=== PATIENT | female | born 1975 | race Caucasian/White ===

== ENCOUNTER 2021-04-29 01:35 | Day surgery (SDC) | payer BC, SELFPAY ==
[2021-04-21 12:52] VITALS: BMI 33.0
--- NOTE | 2021-04-21 13:02 | PC.NURSE ---
Report to the Outpatient Waiting Room, entrance under the green pavilion located off [facility], at time 0930 on date 04/29/21. OR Time: 1130. - You and your visitor will be asked a series of questions to screen for COVID 19 for your protection. - A mask is required within the hospital. One visitor will be allowed to accompany the patient into the hospital. Patients visitor will be instructed to remain with patient at all times or leave the building. We will allow the visitor to come back to the postoperative area when patient is ready. Preoperative COVID Testing Requirements: No COVID Test needed if: (proof is required; if not received patient will have Rapid Test prior to entry) - Patient has received COVID Vaccine at least 14 days prior to procedure date or - Patient has positive COVID test result within last 90 days of surgery date. COVID Test needed if above criteria is not met Patients may have clear liquids (water, carbonated beverages, clear teas, apple juice) until 3 hours prior to surgery with a maximum of 20 ounces. - No food from midnight until time of surgery Take the following medications with a SIP of water the morning of surgery: ALPRAZOLAM Medications to discontinue per physician: N/A Date to take last dose: N/A Please no make-up, nail yi, hairspray, perfume, deodorant, or body powder the day of surgery. No jewelry (including any body piercings) or valuables the day of surgery, leave them at home. Please take a shower or bath the night before, or the morning of, surgery with an antibacterial soap. Wear comfortable, loose fitting clothing. - Jewelry must be removed prior to entering the operating room. Rings and piercings that are not removed may be cut off. - The hospital will not accept responsibility for valuables. - Please leave all valuables, including medications, at home the day of surgery. If you are going home after surgery, a licensed parcel post truck driver must drive you home. - NO public transportation without another adult. - We recommend that an adult stay with you for 24 hours following discharge. - We also recommend that you do not drive, make important decision, drink alcoholic beverages, or take any drugs that were not prescribed by your health care provider for at least 24 hours after your discharge time. Follow any additional instructions given to you from your surgeon. Telephone instructions given to XENA CHILEL and asked if any additional questions and then verbalized understanding. Patient advised to call surgeon office or pre surgery nurse liaison [phone] if any additional questions.
--- NOTE | 2021-04-28 16:08 | PM.IMHP ---
H&P: HPI History of Present Illness Date/Time: 04/28/21 16:08 Patient is a 45 year old woman who presented to gynecology office for evaluation of malpositioned Essure tubal occlusion device. Patient had Essure procedure performed in approximately 2009. She was doing well until a few months ago when she developed irregular menses occurring approximately every 2 weeks. Patient also reports worsening pelvic pain and cramping during same timeframe. She was concerned and presented to [facility] for further evaluation. A pelvic ultrasound was performed and reported malpositioned left Essure device within uterine fundus. After discussion, decision made to proceed with hysteroscopic evaluation and hopefully, Essure device removal, as next step in management. In general, patient doing well today without complaints. Chief Complaint: Pelvic pain Malpositioned Essure tubal occlusion device Review of Systems Review of Systems: All systems reviewed & are unremarkable except as noted in HPI and below Constitutional: Constitutional: Reports as per HPI, Reports no additional constitutional complaints, Denies chills, Denies fever(s), Denies headache(s) and Denies night sweats Eyes: Eyes: Reports as per HPI and Reports no additional eye complaints ENT: Reports system reviewed and no additional complaints, except as documented, Reports as per HPI, Reports Normal hearing present and Denies headache(s) Cardiovascular: Cardiovascular: Reports as per HPI, Reports no additional cardiovascular complaints, Denies chest pain and Denies dyspnea Respiratory: Respiratory: Reports as per HPI, Reports no additional respiratory complaints, Denies cough and Denies dyspnea Gastrointestinal: Gastrointestinal: Reports as per HPI, Reports no additional gastrointestinal complaints, Denies abdominal pain, Denies change in bowel habits, Denies change in stool character, Denies nausea and Denies vomiting Genitourinary: Genitourinary: Reports no additional female genitourinary complaints, Reports as per HPI, Denies abnormal vaginal bleeding, Denies genital lesions, Denies hot flashes, Denies dyspareunia, Denies pelvic pain, Denies sexual dysfunction, Denies urinary incontinence, Denies vaginal discharge, Denies vaginal dryness and Denies vaginal odor Musculoskeletal: Musculoskeletal: Reports no additional musculoskeletal complaints and Reports as per HPI Integumentary/Breasts: Skin/Breast: Reports system reviewed and no additional complaints, except as docu, Reports as per HPI, Denies breast pain and Denies nipple discharge Neurologic: Reports system reviewed and no additional complaints, except as documented, Reports as per HPI, Reports Normal hearing present and Denies headache(s) Psychiatric: Psychiatric: Reports no additional psychiatric complaints, Reports as per HPI, Denies anxiety and Denies depression Endocrine: Endocrine: Reports no additional endocrine complaints and Reports as per HPI Hematologic/Lymphatic: Hematologic/Lymphatic: Reports no additional hematologic/lymphatic complaints and Reports as per HPI Allergic/Immunologic: Allergic/Immunologic: Reports no additional allergic/immunologic complaints and Reports as per HPI PMFSH Past Medical History Medical History H/O gastroesophageal reflux (GERD) History of miscarriage x 1 History of sterilization procedure Essure Coils 2010 History of vaginal delivery x 3 Irregular menses Plantar fasciitis Surgical History Surgical History History of colposcopy with cervical biopsy 2006 History of D&C 2008 after miscarriage History of foot surgery History of loop electrical excision procedure (LEEP) 2006 Family History Family History Father Hypertension Mother Diabetes mellitus Hypertension Thyroid disorder Sibling Diabetes mellitus Hyperte
[2021-04-29 09:44] VITALS: BP 122/81; PULSE 72; RESP 18; TEMP 36.4; O2SAT 100
--- NOTE | 2021-04-29 09:57 | P.PNAN_ITS ---
Anes - Initial Pre Proc Eval Procedure: Operation Date: 04/29/21 11:30 Proposed Procedures p Hysteroscopy - Romelia Ríos MD Date/Time: 04/29/21 09:57 Surgeon: Romelia Roís MD Pre Op Diagnosis: pelvic pain Patient Data Age: 45 Gender: F Height: 1.68 m Weight: 93 kg Allergies Allergy/AdvReac Type Severity Reaction Status Date / Time metronidazole [From Flagyl] Allergy Hives Verified 04/21/21 12:51 chlorhexidine AdvReac Rash Verified 04/21/21 12:51 Home Medications Medication Instructions Recorded Confirmed Type alprazolam 0.25 mg tablet 0.25 mg PO DAILY 01/18/21 04/21/21 History pantoprazole 40 mg granules 40 mg PO DAILY 01/18/21 04/21/21 History delayed-release for susp in packet diclofenac sodium 100 mg 100 mg PO DAILY 04/12/21 04/21/21 History tablet,extended release 24 hr Patient hx anesthesia problems: none Family hx anesthesia problems: none Results Review: All pre-operative results and documents have been reviewed as part of the pre-operative evaluation. [facility] Past Medical History Medical History Anxiety H/O gastroesophageal reflux (GERD) MARITZA (obstructive sleep apnea) Plantar fasciitis Surgical History Surgical History History of colposcopy with cervical biopsy 2006 History of D&C 2008 after miscarriage History of foot surgery History of loop electrical excision procedure (LEEP) 2006 Family History Family History Father Hypertension Mother Diabetes mellitus Hypertension Thyroid disorder Sibling Diabetes mellitus Hypertension Social History Social History Smoking packs per day: 1.5 Smoking cigarettes per day: 30.0 Years smoked: 20 Smoking pack-years: 30.00 Smoking status: Former smoker Tobacco type: cigarettes Smoking end date: 03/05/15 Alcohol intake: never Substance use: never Substance use type: does not use Living arrangements: with family Spiritual care concerns: No Anes - Eval Final PreProcedure Day of Procedure 04/29/21 09:57 Patient weight: obese Heart: regular rate and rhythm Lungs: clear to auscultation Airway: Mallampati scale class II Neurological: alert and oriented Last oral intake: >/= 8 hours ASA classification: III Emergent: no Anesthetic plan: proceed Anesthesia type and monitoring: general GIVS and standard monitoring Results Review: All pre-operative results and documents have been reviewed as part of the pre-operative evaluation. Informed Consent: The patient's anesthetic plan and its attendant risks and benefits were discussed with the patient/family/POA. Questions were solicited and answers provided to the satisfaction of the patient/family/POA.
[2021-04-29] MEDS: LACTATED RINGERS 1,000 ML 30 ML IV CONT (10:07)
--- NOTE | 2021-04-29 10:15 | WPDHPUPDATE1 ---
History and Physical Update Update Date/Time: 04/29/21 10:15 History and Physical has been reviewed, including an updated exam of the patient. There are NO changes in the patient's condition. Risks, benefits, and alternatives have been discussed and questions answered. Patient agrees to proceed with procedure.
[2021-04-29 11:06] VITALS: BP 136/72; PULSE 80; RESP 16; O2SAT 98
--- NOTE | 2021-04-29 11:11 | P.OP_ITS ---
Procedure Note - Detailed Date of Procedure 04/29/21 Pre-op Diagnosis pelvic pain Possible malpositioned Essure tubal occlusion device Post-op Diagnosis same Procedure Performed Diagnostic hysteroscopy Surgeon Romelia Ríos MD Anesthesia MAC Findings normal appearing endometrial cavity with a minimal amount of polypoid tissue visualized, bilateral tubal ostia seen, Essure tubal occlusion device not seen Description of Procedure The patient was taken to the operating room where she self-transferred to the operating room table. Patient was placed in dorsal supine position. Patient was then repositioned in dorsal lithotomy position with the use of Aristeo st irrups. Anesthesia was administered and found to be adequate. The patient was prepped and draped in the usual sterile fashion. A red rubber catheter was used to drain the bladder of approximately 5 cc of light yellow urine. A bivalve speculum was inserted into the vagina. The anterior lip of the cervix was visualized and grasped with a single-tooth tenaculum. A paracervical block was performed with 1% lidocaine. 5 cc of lidocaine was administered on either side for total of 10 cc. The cervix was serially dilated to accommodate a hysteroscope. Hysteroscope was introduced into the endometrial cavity. Patient currently on menstrual cycle and a minimal amount of blood and tissue was noted. Saline was flushed and evacuated through the hysteroscope clearing the cavity and enabling adequate visualization. Careful attention was made to monitor efflux in the event that Essure tubal occlusion device was inadvertently evacuated during this process. A general survey of the endometrial cavity was performed. Endometrial cavity appeared grossly normal. The left tubal ostia was clearly visualized. No Essure tubal occlusion device was seen near or protruding through left ostium. The right tubal ostium was slightly obscured by minimal amount tissue. An attempt was made to flush and evacuate tissue using hysteroscope, however, unsuccessful. Hysteroscope was briefly removed and a sma ll rigid curette was introduced into the endometrial cavity and used only to clear tissue obscuring right tubal ostium. Hysteroscope was reintroduced and the right tubal ostium was clearly visualized. Again, no Essure tubal occlusion device was seen near or protruding through ostium. As hysteroscope was being withdrawn, an overall panoramic view was noted and again no Essure device was seen. Several photographs were taken throughout procedure. Hysteroscope was removed. The tenaculum was removed. A minimal amount of oozing from one of the puncture sites was noted. This site was made hemostatic with silver nitrate. Excellent hemostasis was noted. The remainder of the patient's vagina was cleansed and dried. Speculum was removed. The remainder of the patient was cleansed and dried. She was taken out of the dorsal lithotomy position and awakened from anesthesia without difficulty. She was transferred to the recovery room in stable condition. All sponge and instrument counts were correct at end of procedure.. Estimated Blood Loss 5 IV Fluids 750 (hysteroscopic fluid: 1200cc in/1150cc out) Urine Output 5 Drains No Packing No Pathology none sent Complications No immediate complications Condition stable Disposition same day
[2021-04-29 11:35] VITALS: BP 120/85; PULSE 76; RESP 17; O2SAT 98
[2021-04-29] MEDS: oxyCODONE HCL (*CRX) 5 MG TAB IR PO (11:44)
[2021-04-29 12:05] VITALS: BP 121/78; PULSE 59; RESP 18; O2SAT 100
[2021-04-29 12:35] VITALS: BP 126/73; PULSE 63; RESP 18
== END 2021-04-29 12:50 | disposition home or self-care (01) ==
PROVIDERS: PCP Family Medicine; Visit Provider Student in an Organized Health Care Education/Training Program
PROC: 0U5B8ZZ Destruction of Endometrium, Via Natural or Artificial Opening Endoscopic (ICD-10-PCS; CPT 58563; principal; 2021-04-29 11:30)
DX: T83.428A Displacement of other prosthetic devices, implants and grafts of genital tract, initial encounter (principal); Y83.8 Other surgical procedures as the cause of abnormal reaction of the patient, or of later complication, without mention of misadventure at the time of the procedure; R10.2 Pelvic and perineal pain; N92.6 Irregular menstruation, unspecified; K21.9 Gastro-esophageal reflux disease without esophagitis; Z87.891 Personal history of nicotine dependence; E66.9 Obesity, unspecified; Z68.33 Body mass index [BMI] 33.0-33.9, adult
CPT/HCPCS: 58555; A9270; J2250; J2704; J3010; J7030; J7120

== ENCOUNTER 2021-05-16 09:26 | Outpatient (CLI) | payer BC, SELFPAY ==
--- NOTE | ~2021-05-16 | US_ITS ---
EXAMINATION: US pelvic complete DATE: 05/16/2021 10:20 INDICATION: Postembolization check. Comparison:No prior studies for comparison. TECHNIQUE: Multiple transabdominal sonographic images of the pelvis performed. FINDINGS: The uterus measures 10.1 x 6.7 x 5.2 cm. There is a small uterine fibroid located superiorl y measuring 1.3 cm maximum dimension. The endometrial complex measures 4.7 mm. The right ovary measures 2.9 x 2 x 1.7 cm and the left ovary measures 3.2 x 1.7 x 1.6 cm. There is a 1.7 cm left ovarian cyst. There are small follicles in each ovary. Normal doppler signal in both ovar ies. Consider correlation with KUB to evaluate Essure device. There is no free fluid in the pelvis. There are no abnormal masses seen on either side. IMPRESSION: 1. Small uterine fibroid measuring 1.3 cm. 2: Left ovarian cyst measuring 1.7 cm. Reviewed, dictated and finalized at location B.
== END 2021-05-16 09:27 | disposition home or self-care (01) ==
PROVIDERS: PCP Family Medicine; Visit Provider Student in an Organized Health Care Education/Training Program
DX: Z30.8 Encounter for other contraceptive management (principal); D25.9 Leiomyoma of uterus, unspecified; N83.202 Unspecified ovarian cyst, left side
CPT/HCPCS: 76856

== ENCOUNTER 2021-06-08 14:22 | Outpatient (CLI) | payer BC, SELFPAY ==
--- NOTE | ~2021-06-08 | CT_ITS ---
EXAMINATION: CT abdomen pelvis wo con EXAM DATE: 06/08/2021 14:47 INDICATION: Essure coil unseen. TECHNIQUE: Spiral CT of the abdomen and pelvis was performed without contrast. Axial, coronal and s agittal images of the abdomen and pelvis were reviewed. The dose-length product (DLP) for this exami nation was 759.68 mGy-cm. The exposure was tailored according to patient size (auto mA exposure cont rol), and iterative reconstruction (ASIR) was used as additional dose reduction technique. There is no prior study for comparison. FINDINGS: Both of the Essure devices extending along the expected courses of the fallopian tubes, exp ected positions. Uterus is anteverted. Ovaries and uterus within normal limits for CT. The liver, sp kenia, adrenal glands and pancreas are unremarkable. The gallbladder is contracted but otherwise unre markable. There is no nephrolithiasis or hydronephrosis. The bladder is unremarkable. There is no retroperitoneal or pelvic lymphadenopathy. There is mild scattered arteriosclerotic disease. The appendix is normal. The stomach and small bowel are unremarkable. There is expected amount of c olonic stool. No free intraperitoneal gas. The heart is normal in size. There are no pericardial or pleural effusions. The lung bases are unremarkable. The bones are unremarkable. IMPRESSION: Bilateral Essure devices along the expected positions. Reviewed, dictated and finalized at location A.
== END 2021-06-08 14:23 | disposition home or self-care (01) ==
PROVIDERS: PCP Family Medicine; Visit Provider Student in an Organized Health Care Education/Training Program
DX: T83.32XA Displacement of intrauterine contraceptive device, initial encounter (principal); R10.2 Pelvic and perineal pain
CPT/HCPCS: 74176

== ENCOUNTER 2022-02-01 13:05 | Outpatient (CLI) | payer BC, SELFPAY ==
--- NOTE | 2022-02-01 13:48 | ECG_ITS ---
Measurements Intervals [place] Rate: 58 P: 18 [place]: 145 QRS: 27 QRSD: 106 T: 30 QT: 419 QTc: 414 Interpretive Statements SINUS BRADYCARDIA BORDERLINE ECG NO PREVIOUS ECG AVAILABLE FOR COMPARISON Electronically Signed On 02-01-2022 13:56:33 SMUDGER by Wero Bond D.O.
== END 2022-02-01 13:06 | disposition home or self-care (01) ==
LOC: ANHSURGERY 13:44
PROVIDERS: PCP Family Medicine; Visit Provider Student in an Organized Health Care Education/Training Program
DX: N92.6 Irregular menstruation, unspecified (principal); Z87.891 Personal history of nicotine dependence; Z01.818 Encounter for other preprocedural examination; R94.31 Abnormal electrocardiogram [ECG] [EKG]
CPT/HCPCS: 36415; 86850; 86900; 86901; 93005

== ENCOUNTER 2022-02-03 00:38 | Day surgery (SDC) | payer BC, SELFPAY ==
[2022-01-24 12:16] VITALS: BMI 33.0
--- NOTE | 2022-01-24 12:20 | PC.NURSE ---
Report to the Outpatient Waiting Room, entrance under the green pavilion located off [facility], at time 8:30 on date 02/03/22. Planned Procedure Time: 10:30. Time changes happen often and if your time is changed the preop area will call you the afternoon before. - You and your visitor will be asked to self-screen and do not enter if you have any COVID symptoms. - Only one visitor is requested with a max of two and NO children visitors are allowed at this time. - The patient visitor may be requested to leave or wait in car when not with patient due to distancing restrictions. - A mask is optional within the hospital. Patients may have clear liquids (water, carbonated beverages, clear teas, apple juice) until 3 hours prior to surgery (7:30) with a maximum of 20 ounces. - No food from midnight until time of surgery Take the following medications with a SIP of water the morning of surgery: ALPRAZOLAM IF NEEDED Medications to discontinue per physician: N/A Date to take last dose: N/A Please no make-up, nail [place], hairspray, perfume, deodorant, or body powder the day of surgery. No jewelry (including any body piercings) or valuables the day of surgery, leave them at home. Please take a shower or bath the night before, or the morning of, surgery with an antibacterial soap. Wear comfortable, loose fitting clothing. - Jewelry must be removed prior to entering the operating room. Rings and piercings that are not removed may be cut off. - The hospital will not accept responsibility for valuables. - Please leave all valuables, including medications, at home the day of surgery. If you are going home after surgery, a licensed commercial front load driver must drive you home. - NO public transportation without another adult if you receive anesthesia. - We recommend that an adult stay with you for 24 hours following discharge. - We also recommend that you do not drive, make important decision, drink alcoholic beverages, or take any drugs that were not prescribed by your health care provider for at least 24 hours after your discharge time. Follow any additional instructions given to you from your surgeon. If you or anyone in your household have experienced Covid symptoms in the past week, please notify your surgeon or the nurse liaison at the phone number below for possible testing. Telephone instructions given to PT - XENA CHILEL and asked if any additional questions and then verbalized understanding. Patient advised to call surgeon office or pre surgery nurse liaison [phone] if any additional questions.
--- NOTE | 2022-02-01 16:55 | PM.IMHP ---
H&P: HPI History of Present Illness Date/Time: 02/01/22 16:55 Chief Complaint: Pelvic pain Irregular menses Narrative: Patient is a 46 year old woman with long history of pelvic pain, mostly left-sided and suspected due to Essure coils. Patient states the pain has been persistent in nature primarily since she first presented to the gynecology office in 01/2021. Patient underwent a diagnostic hysteroscopy for possible malpositioned Essure coils, however, coil not visualized. Pain has been persistent. Patient also reports persistence of irregular menses and bleeding since August 2021. Menses may last for up to eight weeks at a time and the flow varies between light flow and heavy bleeding with passage of blood clots. Discussion had with patient regarding possible management options and following discussion, patient would like to proceed with hysterectomy for, hopefully, definitive management of symptoms. In general, she is feeling well today. Review of Systems Review of Systems: All systems reviewed & are unremarkable except as noted in HPI and below Constitutional: Constitutional: Reports as per HPI and Reports no additional constitutional complaints Eyes: Eyes: Reports as per HPI and Reports no additional eye complaints ENT: Reports system reviewed and no additional complaints, except as documented and Reports as per HPI Cardiovascular: Cardiovascular: Reports as per HPI and Reports no additional cardiovascular complaints Respiratory: Respiratory: Reports as per HPI and Reports no additional respiratory complaints Gastrointestinal: Gastrointestinal: Reports as per HPI and Reports no additional gastrointestinal complaints Genitourinary: Genitourinary: Reports no additional female genitourinary complaints and Reports as per HPI Musculoskeletal: Musculoskeletal: Reports no additional musculoskeletal complaints and Reports as per HPI Integumentary/Breasts: Skin/Breast: Reports system reviewed and no additional complaints, except as docu and Reports as per HPI Neurologic: Reports system reviewed and no additional complaints, except as documented and Reports as per HPI Psychiatric: Psychiatric: Reports no additional psychiatric complaints and Reports as per HPI Endocrine: Endocrine: Reports no additional endocrine complaints and Reports as per HPI Hematologic/Lymphatic: Hematologic/Lymphatic: Reports no additional hematologic/lymphatic complaints and Reports as per HPI Allergic/Immunologic: Allergic/Immunologic: Reports no additional allergic/immunologic complaints and Reports as per HPI PMFSH Past Medical History Medical History Anxiety H/O gastroesophageal reflux (GERD) Irregular menses MARITZA (obstructive sleep apnea) Plantar fasciitis Surgical History Surgical History History of colonoscopy [id number] Normal History of colposcopy with cervical biopsy 2006 History of D&C 2008 after miscarriage History of foot surgery History of loop electrical excision procedure (LEEP) 2005 Family History Family History Father Hypertension Mother Diabetes mellitus Hypertension Thyroid disorder Sibling Diabetes mellitus Hypertension Social History Social History Smoking packs per day: 1.5 Smoking cigarettes per day: 30.0 Years smoked: 20 Smoking pack-years: 30.00 Smoking status: Former smoker Tobacco type: cigarettes Smoking end date: 03/05/15 Alcohol intake: never Substance use: never Substance use type: does not use Spiritual care concerns: No Meds Home Medications and Allergies Home Medications Medication Instructions Recorded Confirmed Type alprazolam 0.25 mg tablet 0.25 mg PO DAILY 01/18/21 01/24/22 History pantoprazole 40 mg granules 40 mg PO DAILY 01/18/21 01/24/22 Histor
[2022-02-03] VITALS (10 sets, daily range): BP systolic 85–127; BP diastolic 53–90; PULSE 60–77; RESP 10–18; TEMP 36.7–37.4; O2SAT 94–100
[2022-02-03] MEDS: ACETAMINOPHEN 500 MG TABLET 1000 MG PO (08:57)
[2022-02-03] MEDS: LACTATED RINGERS 1,000 ML 30 ML IV CONT ×2 (09:05→13:37)
--- NOTE | 2022-02-03 09:14 | P.PNAN_ITS ---
Anes - Initial Pre Proc Eval Procedure: Operation Date: 02/03/22 10:30 Proposed Procedures p Laparoscopic Assisted Hysterectomy, Left Salpingo Oophorectomy, Right Salpingectomy - Romelia Ríos MD Date/Time: 02/03/22 09:14 Surgeon: Romelia Roís MD Pre Op Diagnosis: pelvic pain, irregular menses Patient Data Age: 46 Gender: F Height: 1.68 m Weight: 93 kg Allergies Allergy/AdvReac Type Severity Reaction Status Date / Time metronidazole [From Flagyl] Allergy Hives Verified 02/03/22 08:58 chlorhexidine AdvReac Rash Verified 02/03/22 08:58 Home Medications Medication Instructions Recorded Confirmed Type alprazolam 0.25 mg tablet 0.25 mg PO DAILY 01/18/21 01/24/22 History pantoprazole 40 mg granules 40 mg PO DAILY 01/18/21 01/24/22 History delayed-release for susp in packet (Protonix) Patient hx anesthesia problems: none Family hx anesthesia problems: none Results Review: All pre-operative results and documents have been reviewed as part of the pre- operative evaluation. [facility] Past Medical History Medical History Anxiety H/O gastroesophageal reflux (GERD) Irregular menses MARITZA (obstructive sleep apnea) Plantar fasciitis Surgical History Surgical History History of colonoscopy 2027-3059 Normal History of colposcopy with cervical biopsy 2006 History of D&C 2008 after miscarriage History of foot surgery History of loop electrical excision procedure (LEEP) 2006 Family History Family History Father Hypertension Mother Diabetes mellitus Hypertension Thyroid disorder Sibling Diabetes mellitus Hypertension Social History Social History Smoking packs per day: 1.5 Smoking cigarettes per day: 30.0 Years smoked: 20 Smoking pack-years: 30.00 Smoking status: Former smoker Tobacco type: cigarettes Smoking end date: 03/05/15 Alcohol intake: never Substance use: never Substance use type: does not use Living arrangements: with family Spiritual care concerns: No Anes - Eval Final PreProcedure Day of Procedure 02/03/22 09:14 Patient weight: obese Heart: regular rate and rhythm Lungs: clear to auscultation Airway: Mallampati scale class II Results Review: All pre-operative results and documents have been reviewed as part of the pre- operative evaluation. Informed Consent: The patient's anesthetic plan and its attendant risks and benefits were discussed with the patient/family/POA. Questions were solicited and answers provided to the satisfaction of the patient/family/POA.
[2022-02-03] MEDS: KETOROLAC 15 MG/ML VIAL (*BKC) IV PUSH (09:24)
[2022-02-03] MEDS: SCOPOLAMINE 1.5 MG PATCH TRANSDERM (09:40)
--- NOTE | 2022-02-03 09:41 | WPDHPUPDATE1 ---
History and Physical Update Update Date/Time: 02/03/22 09:41 History and Physical has been reviewed, including an updated exam of the patient. There are NO changes in the patient's condition. Risks, benefits, and alternatives have been discussed and questions answered. Patient agrees to proceed with procedure.
[2022-02-03] MEDS: ceFAZolin 2 GM/D5W 50 ML 2 GM/50 ML BAG IVPB (09:56)
[2022-02-03] MEDS: BUPIVACAINE HCL 0.25% PF 30 ML VIAL INFILTRATE (10:37)
[2022-02-03] MEDS: fentaNYL CITRATE INJ (*CRX) 100 MCG/2 ML VIAL 25 MCG IV PUSH ×4 (14:13→14:24)
--- NOTE | 2022-02-03 14:24 | W.PM.PROC2 ---
Procedure Note - Detailed Date of Procedure 02/03/22 Pre-op Diagnosis pelvic pain, irregular menses Post-op Diagnosis Same Procedure Performed Lysis of adhesions, laparoscopic assisted vaginal hysterectomy, left salpingo-oophorectomy, right salpingextomy Surgeon Romelia Ríos MD Agriculture Science Teacher Bindu Solorzano Anesthesia General Findings Portion of large bowel attached to left abdominal and pelvic side wall via filmy adhesions, slightly enlarged uterus with a few small anterior fibroids visualized, normal appearing fallopian tubes and ovaries bilaterally, left ovary also noted to be adherent to portion of large bowel Description of Procedure The patient was taken to the operating room, where she self-transferred to the operating room table. She was placed in dorsal supine position. General anesthesia was administered without difficulty and found to be adequate.? The patient was repositioned in dorsal lithotomy position with the use of Aristeo stirrups and arms were carefully tucked at her side.? She was prepped and draped in usual sterile fashion.? A Sims catheter was inserted using sterile technique.? A bivalve speculum was then placed into the vagina.? With good visualization of the cervix, the anterior lip of the cervix was grasped with ring forceps. The cervix was then serially dilated to accommodate the insertion of a HUMI uterine manipulator, which was inserted into the uterus for use during the laparoscopic portion of the case.? The tenaculum and speculum were removed.? Tinware Lithograph Press Operator's gloves were changed.? Attention was then turned to the patient's abdomen.? A small amount of 0.25% Marcaine was injected in the infraumbilical region.? A small supraumbilical incision was made with a scalpel.? While tenting the abdominal wall up, a Veress needle was inserted into the abdominal cavity, however, proper intra-abdominal confirmation was unable to be determined with saline.?A few attempts were made, however, confirmation could not be determined. The infraumbilical incision was extended slightly and the fascia beneath the incision was identified and grasped with two Allis clamps. The fascia was incised with a scalpel. The peritoneum was palpated beneath and entered bluntly. The fascial incision was extended to accommodate a size 5 trocar. The edges of the fascia were tagged with 0 vicryl. Trocar was inserted directly into the abdominal cavity. Carbon dioxide tubing was connected to the trocar and insufflation was begun.? The abdomen was insufflated to 15 mmHg.? Once adequate pneumoperitoneum was achieved, the laparoscope was introduced into the abdominal cavity. For enhanced visualization and completion of the procedure, two additional lateral trocars were placed, one in the left lower quadrant and one in the right lower quadrant. A small amount of 0.25% Marcaine was injected in the right lower quadrant. A skin incision was made with a scalpel and a 5 mm trocar was placed under direct visualization.? Similarly, a small amount of 0.25% Marcaine was injected and a skin incision was made in the left lower quadrant. An additional 5 mm trocar was placed under direct visualization.? The patient was placed in Trendelenburg position.? This allowed good visualization of pelvic structures and a quick survey of the pelvic cavity was completed.? The uterus appeared to be grossly normal, however, at least two small fibroids were visualized anteriorly.?The fallopian tubes and ovaries appeared normal bilaterally. A segment of the large intestine was noted to be adherent to the left abdominal/pelvic wall via filmy adhesions. With the use of a LigaSure cautery and transection device, these filmy adhesions in between the epiploica and the abdominal wall were carefully dissected, freeing a significant portion of this segment of bowel. Upon further evaluation, the left ovary was noted to be adherent to a segment of epiploica attached to the large bowel with what appeared to be filmy adhesions as well. Elaine
[2022-02-03] MEDS: KETOROLAC 30 MG/ML VIAL (*BKC) IV PUSH (15:20)
[2022-02-03] MEDS: DEXTROSE 5%/LACTATED RINGERS 1,000 ML 125 ML IV CONT (15:20)
[2022-02-03] MEDS: SIMETHICONE 80 MG TAB.CHEW PO (17:07)
[2022-02-03] MEDS: DOCUSATE SODIUM 100 MG CAPSULE PO (17:07)
[2022-02-03] MEDS: HYDROcodone/acetaminophen (*CRX) 10-325 MG TABLET 1 TAB PO ×2 (17:07→19:59)
[2022-02-04] MEDS: HYDROcodone/acetaminophen (*CRX) 10-325 MG TABLET 1 TAB PO ×2 (00:20→08:01)
[2022-02-04] MEDS: SIMETHICONE 80 MG TAB.CHEW PO ×2 (00:24→08:02)
[2022-02-04 00:47] VITALS: BP 119/72; PULSE 60; RESP 16; TEMP 36.9; O2SAT 99
[2022-02-04 05:13] VITALS: BP 97/58; PULSE 66; RESP 18; TEMP 36.9; O2SAT 96; O2SAT 99
[2022-02-04 06:18] LABS: Basophils Percent Auto 0.3 % (0.2-1.2); Eosinophils Percent Auto 0.1 % (0-4.4); Hematocrit 33.8 % (37.0-47.0); Hemoglobin 11.1 g/dL (12.0-15.0); Immature Granulocyte Absolute 0.05 K/mm3 (0.00-0.031); Immature Granulocyte Percent A 0.5 % (0-0.5); Lymphocytes Absolute Auto 1.56 K/mm3 (0.9-3.2); Lymphocytes Percent Auto 14.4 % (18.3-44.2); Mean Corpuscular HGB Conc 32.8 g/dl (32-36); Mean Corpuscular Hemoglobin 28.1 pg (26-34); Mean Corpuscular Volume 85.6 fl (80-100); Monocytes Absolute Auto 0.8 K/mm3 (0.1-0.6); Monocytes Percent Auto 7.3 % (2.6-8.5); Neutrophils Absolute Auto 8.4 K/mm3 (1.3-6.7); Neutrophils Percent Auto 77.4 % (45.5-73.1); Platelet Count Result 241 k/mm3 (150-375); Red Blood Count 3.95 M/mm3 (4.2-5.4); Red Cell Distribution Width 12.4 % (11.5-14.5); White Blood Count 10.9 K/mm3 (4.5-10.0)
[2022-02-04] MEDS: DOCUSATE SODIUM 100 MG CAPSULE PO (08:01)
[2022-02-04 08:05] VITALS: BP 106/71; PULSE 86; RESP 18; TEMP 37.1; O2SAT 96
--- NOTE | 2022-02-04 10:12 | PM.GYNPNOP ---
JUKEBOX CHECKER - A/P Assessment and plan (1) S/P laparoscopic assisted vaginal hysterectomy (LAVH): Code(s): Z90.710 - Acquired absence of both cervix and uterus Status: Acute Assessment and Plan: POD#1 doing well continue routine postoperative care encourage ambulation and use of IS dc home today in stable condition emergency precautions reviewed f/u in office in 2 weeks for postoperative visit Postoperative Procedures: Procedures Operation Date: 02/03/22 10:30 Actual Procedure Side Surgeon p Laparoscopic Assisted Hysterectomy, Left Salpingo Oophorectomy, Right Salpingectomy, Lysis of Adhesions Not Applicable Romelia Ríos MD Time Spent With Patient Time: Total time spent is greater than 50% in coordination of care (as documented) at patient's floor/unit and/or counseling patient: Time with patient: less than 15 minutes JUKEBOX CHECKER- PN:Subj Post-Op Subjective Date/time seen: 02/04/22 10:12 Patient doing well this AM. Pain reasonably controlled with medication. Denies any headache, chest pain, SOB, N/V. Tolerating PO diet. Ambulating without difficulty. Has voided after bravo catheter removed this AM. Passing flatus. Denies any vaginal bleeding. Review of Systems Review of Systems: All systems reviewed & are unremarkable except as noted in HPI and below Constitutional: Constitutional: Reports as per HPI and Reports no additional constitutional complaints Gastrointestinal: Gastrointestinal: Reports as per HPI and Reports no additional gastrointestinal complaints Genitourinary: Genitourinary: Reports no additional female genitourinary complaints and Reports as per HPI Exam Const: General: cooperative, healthy appearing, comfortable and no acute distress GI: Inspection: non-distended GI Palp: Yes Soft to palpation and Yes Tenderness to palpation present (GI) (appropriately tender beneath incisions) Other: inc sites c/d/i, approx. 3-4cm area of ecchymosis noted beneath umbilical incision Extrem: Right lower extremity: no edema Left lower extremity: no edema Other: no calf tenderness JUKEBOX CHECKER - PN: Obj Data Vital Signs Vital Signs: Vital Signs - 24 hr 02/03/22 13:37 02/03/22 13:50 02/03/22 14:05 Temperature 37.4 C Pulse Rate 63 65 73 Respiratory Rate 10 L 16 14 Blood Pressure 85/53 L 126/82 123/58 L Pulse Oximetry 100 100 94 Oxygen Delivery Simple Face Mask Simple Face Mask Room Air Oxygen Flow Rate 8 8 02/03/22 14:20 02/03/22 14:35 02/03/22 14:44 Temperature Pulse Rate 61 65 60 Respiratory Rate 12 12 14 Blood Pressure 117/90 116/69 123/85 Pulse Oximetry 94 97 96 Oxygen Delivery Room Air Room Air Room Air Oxygen Flow Rate 02/03/22 14:55 02/03/22 17:00 02/03/22 17:00 Temperature 37.4 C 36.8 C Pulse Rate 73 75 75 Respiratory Rate 18 14 18 Blood Pressure 127/79 105/67 Pulse Oximetry 98 98 98 Oxygen Delivery Room Air Oxygen Flow Rate 02/03/22 19:42 02/03/22 19:42 02/04/22 00:47 Temperature 36.8 C 36.9 C Pulse Rate 66 66 60 Respiratory Rate 16 16 16 Blood Pressure 112/66 119/72 Pulse Oximetry 98 98 99 Oxygen Delivery Room Air Oxygen Flow Rate 02/04/22 00:47 02/04/22 05:13 02/04/22 05:13 Temperature 36.9 C Pulse Rate 60 66 66 Respiratory Rate 16 18 18 Blood Pressure 97/58 L Pulse Oximetry 99 96 99 Oxygen Delivery Room Air Room Air Oxygen Flow Rate 02/04/22 08:05 Temperature 37.1 C Pulse Rate 86 Respiratory Rate 18 Blood Pressure 106/71 Pulse Oximetry 96 Oxygen Delivery Oxygen Flow Rate Intake/Output Intake/Output: Intake & Output 02/01/22 02/02/22 02/03/22 02/04/22 23:59 23:59 23:59 23:59 Intake Total 1850 1450 Output Total 30 1000 Balance 1820 450 Meds/Results Medications: Active Medications Generic Name Dose Route Start Last Admin Trade Name Freq PRN Reason Stop Dose Admin Hydrocodone Bitart/Acetaminophen 1 tab 02/03/22 14:47 Hydrocodone/Acetaminophen (*Crx) 5-325 Mg Tablet PO Q3H PRN
--- NOTE | 2022-02-04 10:20 | PM.DS ---
DS: Admitting Diagnosis Discharge Date 02/04/22 Admitting Diagnosis Menorrhagia Pelvic pain DS: Discharge Diagnosis Discharge Diagnosis (1) S/P laparoscopic assisted vaginal hysterectomy (LAVH): Code(s): Z90.710 - Acquired absence of both cervix and uterus Status: Acute DS: Summary Hospital Course Hospital Course: Uncomplicated Time Spent with Patient Time attestation: Total time spent providing and/or coordinating discharge services: DS: Data Data Completed and Pending Pending studies at discharge: Pending at discharge 02/03/22 12:22 Surgical [PTH] Routine Labs on day of discharge: Labs from last 24 hours 02/04/22 05:33 WBC 10.9 H RBC 3.95 L Hgb 11.1 L Hct 33.8 L MCV 85.6 MCH 28.1 MCHC 32.8 RDW 12.4 Plt Count 241 MPV 10.0 Immature Gran % (Auto) 0.5 Neut % (Auto) 77.4 H Lymph % (Auto) 14.4 L [place] % (Auto) 7.3 Eos % (Auto) 0.1 Baso % (Auto) 0.3 Lymph # (Auto) 1.56 [place] # (Auto) 0.8 H Eos # (Auto) 0.0 Baso # (Auto) 0.0 Abs Immat Gran (auto) 0.05 H Absolute Neuts (auto) 8.4 H Absolute Nucleated RBC 0.0 Nucleated RBC % 0.0 Discharge Plan Discharge Patient Disposition: Home, Self-Care Discharge Instructions: Call office ([phone]) to schedule the following appointments (if not already scheduled): 1. Postoperative/wound check in 2 weeks. 2. visit in 4-6 weeks. You may take Ibuprofen 600mg every 6 hours as needed for pain. I have sent a prescription for a stronger pain medication, Woodman, to your pharmacy. You may take this as prescribed for breakthrough pain (pain that is not controlled with Ibuprofen). No driving for at least two weeks. You also may not drive while taking narcotics. Pain medication may make you constipated. It may be helpful to take an [id number] stool softener, such as Colace and/or Senokot, along with the pain medication to help lessen constipation. Call office or go to ED for pain not controlled with medication, headache, chest pain, shortness of breath, fever, chills, persistent nausea or vomiting, severe abdominal pain, heavy vaginal bleeding, foul vaginal discharge or odor, any redness near incision, severe pain, pus or drainage from incision sites. Stand Alone Forms: General Discharge Instructions Follow-up/Referrals: Romelia Ríos MD [Physician] - Discharge Medications: New hydrocodone-acetaminophen 5-325 mg Tablet 1 - 2 tablet PO Q4-6H PRN (Reason: breakthrough pain) Qty: 30 0RF Continued pantoprazole [Protonix] [address] for susp in packet 40 mg PO DAILY alprazolam 0.25 mg tablet 0.25 mg PO DAILY
== END 2022-02-04 11:30 | disposition home or self-care (01) ==
LOC: ANHSURGERY 08:29 → ANHOB2 16:15
PROVIDERS: PCP Family Medicine; Visit Provider Student in an Organized Health Care Education/Training Program
PROC: 0UT9FZZ Resection of Uterus, Via Natural or Artificial Opening With Percutaneous Endoscopic Assistance (ICD-10-PCS; CPT 58552; principal; 2022-02-03 10:30)
DX: N92.6 Irregular menstruation, unspecified (principal); D25.0 Submucous leiomyoma of uterus; D25.1 Intramural leiomyoma of uterus; D25.2 Subserosal leiomyoma of uterus; R10.2 Pelvic and perineal pain; N73.6 Female pelvic peritoneal adhesions (postinfective); Z87.891 Personal history of nicotine dependence; K21.9 Gastro-esophageal reflux disease without esophagitis; F41.9 Anxiety disorder, unspecified; E66.9 Obesity, unspecified; Z68.32 Body mass index [BMI] 32.0-32.9, adult
CPT/HCPCS: 58552; 36415; 85025; 88307; 99199; A9270; J0131; J0330; J0690; J1100; J1170; J1885; J2250; J2405; J2704; J2710; J3010; J7120; J7121

== ENCOUNTER 2023-04-26 08:32 | Outpatient (CLI) | payer BC, SELFPAY ==
--- NOTE | 2023-04-26 08:39 | ECG_ITS ---
Measurements Intervals [place] Rate: 69 P: 40 ND: 176 QRS: 6 QRSD: 94 T: 9 QT: 398 QTc: 428 Interpretive Statements SINUS RHYTHM WITH SINUS ARRHYTHMIA BASELINE ARTIFACT LOW QRS VOLTAGE IN PRECORDIAL LEADS [QRS DEFLECTION < 1.0 mV IN CHEST LEADS] BORDERLINE ECG COMPARED TO ECG 02/01/2022 14:00:50 NO SIGNIFICANT CHANGES Electronically Signed On 04-26-2023 12:29:44 BUTTON SEWING MACHINE OPERATOR by Emigdio Nelson M.D.
[2023-04-26 09:15] LABS: Alanine Aminotransferase 27 U/L (6-35); Albumin Level 3.4 g/dL (3.5-5.1); Alkaline Phosphatase 65 U/L (38-126); Amylase 82 U/L (30-110); Aspartate Amino Transferase 29 U/L (14-36); Bilirubin,Total 0.4 mg/dL (0.2-1.3); Lipase 238 U/L (23-300)
== END 2023-04-26 08:33 | disposition home or self-care (01) ==
LOC: ANHSURGERY 08:35
PROVIDERS: PCP Family Medicine; Visit Provider Surgery
DX: K81.1 Chronic cholecystitis (principal); Z87.891 Personal history of nicotine dependence; Z01.818 Encounter for other preprocedural examination
CPT/HCPCS: 36415; 80076; 82150; 83690; 93005

== ENCOUNTER 2023-04-30 04:12 | Day surgery (SDC) | payer BC, SELFPAY ==
[2023-04-19 11:06] VITALS: BMI 27.7
--- NOTE | 2023-04-19 11:11 | PC.NURSE ---
Report to the Outpatient Waiting Room, entrance under the green pavilion located off [facility], at time 10:00 on date 04/30/23. Planned Procedure Time: 12:00. Time changes happen often and if your time is changed the preop area will call you the afternoon before. - You and your visitor will be asked to self-screen and do not enter if you have any COVID symptoms. - A mask is optional within the hospital at this time. Patients may have clear liquids (water, carbonated beverages, clear teas, apple juice) until 3 hours prior to surgery (9:00) with a maximum of 20 ounces. - No food from midnight until time of surgery Take the following medications with a SIP of water the morning of surgery: NONE DO NOT STOP ANY OF YOUR OTHER PRESCRIPTION MEDICATIONS PRIOR TO SURGERY ?EXCEPT THE FOLLOWING Medications to discontinue per physician: WEGOVY Date to take last dose: PT STATES LAST DOSE 2/5 Please no make-up, nail pitcairn islander, hairspray, perfume, deodorant, or body powder the day of surgery. No jewelry (including any body piercings) or valuables the day of surgery, leave them at home. Please take a shower or bath the night before, or the morning of, surgery with an antibacterial soap. Wear comfortable, loose fitting clothing. - Jewelry must be removed prior to entering the operating room. Rings and piercings that are not removed may be cut off. - The hospital will not accept responsibility for valuables. - Please leave all valuables, including medications, at home the day of surgery. If you are going home after surgery, a licensed truck driver flatbed must drive you home. - NO public transportation without another adult if you receive anesthesia. - We recommend that an adult stay with you for 24 hours following discharge. - We also recommend that you do not drive, make important decision, drink alcoholic beverages, or take any drugs that were not prescribed by your health care provider for at least 24 hours after your discharge time. Follow any additional instructions given to you from your surgeon. If you or anyone in your household have experienced Covid symptoms in the past week, please notify your surgeon or the nurse liaison at the phone number below for possible testing. Telephone instructions given to PT - ZO CHILEL and asked if any additional questions and then verbalized understanding. Patient advised to call surgeon office or pre surgery nurse liaison [phone] if any additional questions.
[2023-04-30] VITALS (12 sets, daily range): BP systolic 102–136; BP diastolic 48–93; PULSE 60–79; RESP 12–21; TEMP 36.2–36.3; O2SAT 92–100; BMI 28.4
[2023-04-30] MEDS: ACETAMINOPHEN 500 MG TABLET 1000 MG PO (10:39)
[2023-04-30] MEDS: KETOROLAC 15 MG/ML VIAL (*BKC) IV PUSH (10:39)
[2023-04-30] MEDS: BUPIVACAINE/EPINEPHRINE 0.5% 30 ML VIAL INFILTRATE (11:52)
--- NOTE | 2023-04-30 11:59 | WPDHPUPDATE1 ---
History and Physical Update Update Date/Time: 04/30/23 11:59 History and Physical has been reviewed, including an updated exam of the patient. There are NO changes in the patient's condition. Risks, benefits, and alternatives have been discussed and questions answered. Patient agrees to proceed with procedure.
--- NOTE | 2023-04-30 12:05 | WPDANESEPPF ---
Anes - Initial Pre Proc Eval Procedure: Operation Date: 04/30/23 12:00 Proposed Procedures p Laparoscopic Cholecystectomy - Deb Pope MD Date/Time: 04/30/23 12:05 Surgeon: Deb Pope MD Pre Op Diagnosis: Chr Cholecystitis Patient Data Age: 47 Gender: F Height: 1.68 m Weight: 80 kg Last Vital Signs Temp 36.3 C L 04/30/23 10:36 Pulse 75 04/30/23 10:36 Resp 14 04/30/23 10:36 BP 108/70 04/30/23 10:36 Pulse Ox 100 04/30/23 10:36 Allergies Allergy/AdvReac Type Severity Reaction Status Date / Time metronidazole [From Flagyl] Allergy Hives Verified 04/19/23 11:05 chlorhexidine AdvReac Rash Verified 04/19/23 11:05 Home Medications Medication Instructions Recorded Confirmed Type pantoprazole 40 mg granules 40 mg PO BID 01/18/21 04/30/23 History delayed-release for susp in packet (Protonix) semaglutide (weight loss) 2.4 2.4 mg subcut WEEKLY 03/29/23 04/19/23 History mg/0.75 mL subcutaneous pen injector (Wegovy) Patient hx anesthesia problems: none Family hx anesthesia problems: none Results Review: All pre-operative results and documents have been reviewed as part of the pre-operative evaluation. [facility] Past Medical History Medical History Anxiety H/O gastroesophageal reflux (GERD) Irregular menses MARITZA (obstructive sleep apnea) Plantar fasciitis Surgical History Surgical History History of colonoscopy 7004-5196 Normal History of colposcopy with cervical biopsy 2006 History of D&C 2008 after miscarriage History of foot surgery History of laparoscopic-assisted vaginal hysterectomy History of left salpingo-oophorectomy History of loop electrical excision procedure (LEEP) 2006 History of salpingectomy Right Family History Family History Father Hypertension Mother Diabetes mellitus Hypertension Thyroid disorder Sibling Diabetes mellitus Hypertension Acute myocardial infarction Social History Social History Smoking packs per day: 2 Smoking cigarettes per day: 40.0 Years smoked: 24 Smoking pack-years: 48.00 Smoking status: Former smoker Tobacco type: cigarettes Smoking end date: 03/05/15 Alcohol intake: never Substance use: never Substance use type: does not use Do You Feel Safe in your Home?: Yes Lack of Transportation: No Lack of Food: Never True Current Housing: I Have Housing Concerned About Future Housing: No Difficulty Paying Gas/Electric Bills: No Difficulty Paying for Meds: No Currently Unemployed: No Education: High School Diploma/GED Difficulty w/ Childcare or Family Care: No Living arrangements: with family Spiritual care concerns: No Anes - Eval Final PreProcedure Day of Procedure 04/30/23 12:05 Patient weight: obese Heart: regular rate and rhythm Lungs: clear to auscultation Airway: Mallampati scale class II Neurological: alert and oriented Last oral intake: >/= 8 hours ASA classification: III Emergent: no Anesthetic plan: proceed Anesthesia type and monitoring: general ETT and standard monitoring Results Review: All pre-operative results and documents have been reviewed as part of the pre-operative evaluation. Informed Consent: The patient's anesthetic plan and its attendant risks and benefits were discussed with the patient/family/POA. Questions were solicited and answers provided to the satisfaction of the patient/family/POA.
[2023-04-30] MEDS: ceFAZolin 2 GM/D5W 50 ML 2 GM/50 ML BAG IVPB (12:08)
--- NOTE | 2023-04-30 12:59 | W.PM.PROC2 ---
Procedure Note - Detailed Date of Procedure 04/30/23 Pre-op Diagnosis chronic cholecystitis, cholelithiasis Post-op Diagnosis Same Procedure Performed Laparoscopic cholecystectomy Surgeon Deb Pope MD Anesthesia General Indications 47-year-old female presenting to the office postprandial right upper pain. Workup, imaging, is significant for chronic cholecystitis, cholelithiasis. Findings Moderate chronic cholecystitis, cholelithiasis Description of Procedure The patient was taken to the operating room placed in the supine position. After adequate induction of general anesthesia, the patient was prepped and draped in normal sterile fashion. A time-out was then performed to verify the patient's identity as well as the procedure being performed. I then made a 5 mm incision in the infraumbilical region. Through this, a Veress needle was placed into the peritoneal cavity and CO2 gas was then insufflated. After adequate pneumoperitoneum was achieved, the Veress needle was removed and a 5 mm optiview trocar was placed through this incision under direct visualization. I then placed the laparoscope through this trocar site and under direct visualization placed a further 12 mm subxiphoid port as well as 2 additional 5 mm ports in the right upper abdomen. The gallbladder was then identified and was noted to be moderately inflamed and distended. I was able to place a grasper at the dome of the gallbladder and this was retracted anterior and cephalad up over the liver. A 2nd retractor was then placed at the infundibulum and retracted laterally, this allowed visualization of the triangle of Calot. I then was able to visualize the cystic duct in its entirety from its proximal insertion into the gallbladder, to its distal junction with the common hepatic/common bile duct junction. At this point, I carefully skeletonized the proximal cystic duct with the [place] dissector. I then clipped and transected the proximal cystic duct. Next I visualized the cystic artery. Again the artery was skeletonized, clipped, and transected. I then used the Bovie cautery to take down the peritoneal attachments of the gallbladder off the liver bed. This was somewhat difficult given the amount of inflammation in the posterior space. Once the gallbladder specimen was completely detached, an endo-pouch was placed through the 12 mm port site. I then placed the gallbladder specimen into the Endo pouch and removed the endo-pouch from the 12 mm port site. The specimen will now be sent to pathology for further review. I then copiously irrigated the right upper quadrant. Hemostasis was noted in the liver bed, the clips were noted to be in good position on both the cystic duct stump and the cystic artery stump. No other pathology was noted in the right upper quadrant. I then moved the laparoscope to the subxiphoid port. No iatrogenic injury or other pathology was noted in the lower abdomen. I then closed the 12 mm trocar site under direct visualization using the Hernán cone and 0 Vicryl suture. At this point, the abdomen was desufflated and all ports removed. All port sites were then closed with 4.O Monocryl subcuticular sutures. Dermabond was placed on each incision. The patient tolerated the procedure well, was extubated in the operating room postoperative and will be transferred to the recovery room in stable condition Estimated Blood Loss 5 Drains No Packing No Pathology Yes Complications No immediate complications Condition Stable Disposition PACU [facility] Billing Surgery - Charge Forward: Surgery Billing
[2023-04-30] MEDS: LACTATED RINGERS 1,000 ML 30 ML IV CONT ×2 (13:07)
[2023-04-30] MEDS: fentaNYL CITRATE INJ (*CRX) 100 MCG/2 ML VIAL 25 MCG IV PUSH ×8 (13:30→14:15)
[2023-04-30] MEDS: ONDANSETRON INJ 4 MG/2 ML VIAL IV PUSH (13:45)
[2023-04-30] MEDS: SCOPOLAMINE 1 MG PATCH 1 PATCH TRANSDERM (15:16)
[2023-04-30] MEDS: diphenhydrAMINE HCl INJ 50 MG/ML VIAL 25 MG IV PUSH (15:17)
[2023-04-30] MEDS: oxyCODONE HCL (*CRX) 5 MG TAB IR PO (15:52)
[2023-04-30] MEDS: HYDROmorphone HCL INJ (*CRX) 1 MG/ML SYR 0.5 MG IV PUSH (16:07)
== END 2023-04-30 16:48 | disposition home or self-care (01) ==
PROVIDERS: PCP Family Medicine; Visit Provider Surgery
PROC: 0FT44ZZ Resection of Gallbladder, Percutaneous Endoscopic Approach (ICD-10-PCS; CPT 47562; principal; 2023-04-30 12:00)
DX: K80.10 Calculus of gallbladder with chronic cholecystitis without obstruction (principal); G47.33 Obstructive sleep apnea (adult) (pediatric); Z79.85 Long-term (current) use of injectable non-insulin antidiabetic drugs; Z87.891 Personal history of nicotine dependence; E66.9 Obesity, unspecified; Z68.28 Body mass index [BMI] 28.0-28.9, adult
CPT/HCPCS: 47562; 88304; A9270; J0690; J1100; J1170; J1200; J1885; J2250; J2405; J2704; J3010; J7030; J7120